=== PATIENT | female | born 1995 | race African-American/Black ===

== ENCOUNTER 2016-09-30 18:23 | Emergency (ER) | payer MEDICAID ==
[~2016-09-30] VITALS: Ht 165.1 cm; Wt 50.0 kg
[2016-09-30] MEDS ORDERED: IBUPROFEN 600MG TABLET PO ONE (21:45)
[2016-09-30 22:15] VITALS: BP 121/86
== END 2016-09-30 22:52 | disposition home or self-care (01) ==
LOC: ER 19:20
DX: S20.219A Contusion of unspecified front wall of thorax, initial encounter (principal); V89.2XXA Person injured in unspecified motor-vehicle accident, traffic, initial encounter; Y93.89 Activity, other specified; Y99.8 Other external cause status; Y92.89 Other specified places as the place of occurrence of the external cause
CPT/HCPCS: 71010; 81025; 99283

== ENCOUNTER 2018-05-04 17:23 | Emergency (ER) | payer MEDICAID ==
[~2018-05-04] VITALS: Ht 170.2 cm; Wt 59.0 kg
[2018-05-04] MEDS ORDERED: ACETAMINOPHEN 325MG TABLET PO ONE (19:45)
[2018-05-04 20:11] LABS: BASOPHILS % 0.3 % (0.0-2.0); EOSINOPHILS % 0.2 % (0.0-5.0); HEMATOCRIT. 33.1 % (36.0-48.0); HEMOGLOBIN. 11.2 g/dL (12.0-16.0); LYMPHOCYTES % 13.6 % (20.0-50.0); MEAN CORPUSCULAR HEMOGLOBIN 31.6 pg (28.0-32.0); MEAN PLATELET VOLUME 7.8 fl (7.4-10.4); NEUTROPHILS % 79.9 % (40.0-76.0); PLATELET 205 x1000/uL (130-400); RED BLOOD CELL COUNT 3.55 mill/uL (4.2-5.4); RED CELL DISTRIBUTION WIDTH 13.8 % (11.6-14.6)
[2018-05-04 20:17] LABS: CHLORIDE 105 mEq/L (98-107)
[2018-05-04 20:38] LABS: *AMPHETAMINES SCREEN URINE NEGATIVE (NEGATIVE); *BARBITURATES SCREEN URINE NEGATIVE (NEGATIVE); *BENZODIAZEPINES SCREEN URINE NEGATIVE (NEGATIVE); METHADONE URINE SCREEN NEGATIVE (NEGATIVE)
[2018-05-04 20:39] LABS: OPIATES URINE SCREEN NEGATIVE (NEGATIVE); PHENCYCLIDINE URINE SCREEN NEGATIVE (NEGATIVE)
[2018-05-04 20:40] LABS: *COCAINE SCREEN URINE NEGATIVE (NEGATIVE)
[2018-05-04 20:41] LABS: B-HCG QUANTITATIVE 30688 mIU/mL (<3)
[2018-05-04 20:48] LABS: CANNABINOID URINE SCREEN PRESUMTIVE POSITIVE (NEGATIVE)
[2018-05-04 21:15] VITALS: BP 123/66
== END 2018-05-04 22:00 | disposition home or self-care (01) ==
LOC: ER 17:23
DX: O20.0 Threatened abortion (principal); O26.852 Spotting complicating pregnancy, second trimester; R10.9 Unspecified abdominal pain; O26.892 Other specified pregnancy related conditions, second trimester; Z3A.18 18 weeks gestation of pregnancy; V43.52XA Car driver injured in collision with other type car in traffic accident, initial encounter; Y93.9 Activity, unspecified; Y92.410 Unspecified street and highway as the place of occurrence of the external cause
CPT/HCPCS: 36415; 76805; 80305; 81025; 84702; 86850; 86900; 99284